=== PATIENT | female | born 1975 | race Asian ===

== ENCOUNTER 2019-04-21 22:05 | Emergency (ER) | payer BC ==
[~2019-04-21] VITALS: Ht 160 cm; Wt 49.9 kg
[2019-04-22] MEDS ORDERED: LORazepam 0.5 MG TAB PO ONE (01:38)
[2019-04-22] MEDS ORDERED: KETOROLAC TROMETH 60MG/2ML VIAL IM ONE (01:45)
[2019-04-22] MEDS ORDERED: TETANUS-DIPTH-ACEL PERTUSSIS 0.5ML SYRG IM ONE (03:15)
[2019-04-22 03:28] VITALS: BP 112/76
== END 2019-04-22 03:30 | disposition home or self-care (01) ==
LOC: ER 22:07
DX: S90.465A Insect bite (nonvenomous), left lesser toe(s), initial encounter (principal); M54.5 Low back pain; W57.XXXA Bitten or stung by nonvenomous insect and other nonvenomous arthropods, initial encounter; Y93.89 Activity, other specified; Y92.89 Other specified places as the place of occurrence of the external cause; Y99.8 Other external cause status
CPT/HCPCS: 90471; 90715; 96372; 99283; J1885